=== PATIENT | female | born 1990 | race Caucasian/White ===

== ENCOUNTER 2018-09-21 12:41 | Outpatient (CLI) | payer OTHER ==
[2018-09-21 15:05] LABS: ADD MAN DIFF? NO
[2018-09-21 15:09] LABS: BASOPHILS % 0.2 % (0.0-2.0); EOSINOPHILS % 0.4 % (0.0-7.0); HEMATOCRIT 33.9 % (37.0-47.0); HEMOGLOBIN 11.4 g/dl (12.0-16.0); LYMPHOCYTES # 1.4 10^3/ul (0.8-2.9); LYMPHOCYTES % 14.4 % (15.0-51.0); MEAN CORPUSCULAR HEMOGLOBIN 29.5 pg (29.0-33.0); MEAN CORPUSCULAR HGB CONC 33.6 g/dl (32.0-37.0); MEAN CORPUSCULAR VOLUME 87.8 fl (82.0-101.0); MEAN PLATELET VOLUME 10.8 fl (7.4-10.4); MONOCYTE # 0.8 10^3/ul (0.3-0.9); MONOCYTES % 7.9 % (0.0-11.0); NEUTROPHIL # 7.4 10^3/ul (1.6-7.5); NEUTROPHILS % 76.5 % (39.0-77.0); PLATELET COUNT 284 10^3/UL (140-415); RED BLOOD COUNT 3.86 10^6/ul (4.20-5.40); RED CELL DISTRIBUTION WIDTH 15.8 % (11.5-14.5)
[2018-09-21 15:09] LABS: WHITE BLOOD COUNT 9.7 10^3/ul (4.8-10.8)
[2018-09-21 15:37] LABS: ALANINE AMINOTRANSFERASE 15 IU/L (13-69); ALBUMIN 3.3 g/dl (3.3-4.9); ALKALINE PHOSPHATASE 151 IU/L (42-121); AMYLASE 98 U/L (11-123); ANION GAP 8 (5-13); ASPARTATE AMINO TRANSFERASE 18 IU/L (15-46); BILIRUBIN,INDIRECT 0.3 mg/dl (0-1.1); BILIRUBIN,TOTAL 0.3 mg/dl (0.2-1.3); BLOOD UREA NITROGEN 8 mg/dl (7-20); CALCIUM 8.6 mg/dl (8.4-10.2); CARBON DIOXIDE 20 mmol/L (21-31); CHLORIDE 110 mmol/L (97-110); CREATININE 0.44 mg/dl (0.44-1.00); Estimated GFR > 60 mL/min (>60); GLUCOSE 97 mg/dl (70-220); LIPASE 56 U/L (23-300); POTASSIUM 3.9 mmol/L (3.5-5.1); SODIUM 138 mmol/L (135-144); TOTAL PROTEIN 6.6 g/dl (6.1-8.1)
== END 2018-09-21 17:01 | disposition home or self-care (01) ==
LOC: OBT 12:41 → L-D 12:41 → OBT 17:01
DX: O26.893 Other specified pregnancy related conditions, third trimester (principal); R10.11 Right upper quadrant pain; Z3A.38 38 weeks gestation of pregnancy
CPT/HCPCS: 76705; 76818; 80053; 82150; 83690; 85025

== ENCOUNTER 2018-10-07 20:31 | Inpatient (IN) | payer OTHER ==
[2018-10-07] MEDS ORDERED: LACTATED RINGER'S 1,000 ML IV (21:21)
[2018-10-07] MEDS ORDERED: METHYLERGONOVINE 0.2 MG INJ IM (21:30)
[2018-10-07] MEDS ORDERED: MISOPROSTOL 200 MCG TAB PR (21:30)
[2018-10-07] MEDS ORDERED: LIDOCAINE 1% (MPF) 30 ML INJ INJ (21:30)
[2018-10-07] MEDS ORDERED: BUTORPHANOL 2 MG INJ IV (21:30)
[2018-10-07] MEDS ORDERED: OXYTOCIN 30 UNITS/LR 500 ML IV ×2 (21:30)
[2018-10-07] MEDS ORDERED: CARBOPROST 250 MCG INJ IM (21:30)
[2018-10-07] MEDS: LACTATED RINGER'S 1,000 ML IV (21:54)
[2018-10-07 21:56] LABS: RUPTURE FETAL MEMBRANES NEGATIVE (NEGATIVE)
[2018-10-07 22:07] LABS: ADD MAN DIFF? NO
[2018-10-07] MEDS: AMPICILLIN 2 GM/NS (PMX) 100 ML IV (22:08)
[2018-10-07 22:13] LABS: BASOPHILS % 0.3 % (0.0-2.0); EOSINOPHILS # 0.1 10^3/ul (0.0-0.5); EOSINOPHILS % 0.6 % (0.0-7.0); HEMATOCRIT 36.1 % (37.0-47.0); LYMPHOCYTES # 2.1 10^3/ul (0.8-2.9); LYMPHOCYTES % 19.1 % (15.0-51.0); MEAN CORPUSCULAR HEMOGLOBIN 29.6 pg (29.0-33.0); MEAN CORPUSCULAR HGB CONC 33.2 g/dl (32.0-37.0); MEAN CORPUSCULAR VOLUME 89.1 fl (82.0-101.0); MEAN PLATELET VOLUME 11.2 fl (7.4-10.4); MONOCYTES % 9.3 % (0.0-11.0); NEUTROPHIL # 7.6 10^3/ul (1.6-7.5); PLATELET COUNT 285 10^3/UL (140-415); RED BLOOD COUNT 4.05 10^6/ul (4.20-5.40); RED CELL DISTRIBUTION WIDTH 16.8 % (11.5-14.5)
[2018-10-07 22:13] LABS: WHITE BLOOD COUNT 10.8 10^3/ul (4.8-10.8)
[2018-10-07 22:32] LABS: INR 0.85; PROTIME 11.7 Sec (11.9-14.9); PT RATIO 0.9
[2018-10-07 22:33] LABS: PARTIAL THROMBOPLASTIN TIME 31.4 Sec (23.0-35.0)
[2018-10-07 23:02] LABS: HEPATITIS B SURFACE ANTIGEN NEGATIVE (NEGATIVE)
[2018-10-08] MEDS: OXYTOCIN 30 UNITS/LR 500 ML IV (00:55)
[2018-10-08] MEDS: AMPICILLIN 1 GM/NS (PMX) 50 ML IV ×6 (02:04→22:03)
[2018-10-08] MEDS: DEXTROSE 5%-LR 1,000 ML IV ×2 (05:21→21:21)
[2018-10-08] MEDS: LACTATED RINGER'S 1,000 ML IV ×3 (07:36→20:11)
[2018-10-08] MEDS ORDERED: FENTAnyl 2MCG/ML-ROPIV 0.2% 100 ML (11:04)
[2018-10-08] MEDS ORDERED: NALOXONE (0.4 MG/ML) INJ IV (18:30)
[2018-10-08] MEDS: FENTAnyl 2MCG/ML-ROPIV 0.2% 100 ML BAG EPI ×2 (18:48→23:49)
[2018-10-08] MEDS: ONDANSETRON 4 MG INJ IV (19:35)
[2018-10-08 20:01] LABS: RAPID PLASMA REAGIN NONREACTIVE (NR)
[2018-10-08] MEDS ORDERED: LIDOCAINE 1.5%/EPI MPF (SDV) 30 ML VIAL (20:04)
[2018-10-09] MEDS: AMPICILLIN 1 GM/NS (PMX) 50 ML IV ×2 (01:49→05:50)
[2018-10-09] MEDS: LACTATED RINGER'S 1,000 ML IV ×2 (04:53→08:54)
[2018-10-09] MEDS: FENTAnyl 2MCG/ML-ROPIV 0.2% 100 ML BAG EPI (05:11)
[2018-10-09] MEDS: DEXTROSE 5%-LR 1,000 ML IV ×3 (05:21→21:21)
[2018-10-09] MEDS ORDERED: FENTAnyl 50 MCG/ML VIAL (07:51)
[2018-10-09] MEDS ORDERED: OXYTOCIN 30 UNITS/LR 500 ML IV ×2 (08:00)
[2018-10-09] MEDS ORDERED: MISOPROSTOL 200 MCG TAB PR ×3 (08:00→09:00)
[2018-10-09] MEDS ORDERED: CARBOPROST 250 MCG INJ IM ×2 (08:00)
[2018-10-09] MEDS ORDERED: METHYLERGONOVINE 0.2 MG INJ IM ×2 (08:00)
[2018-10-09] MEDS ORDERED: CEFAZOLIN 2 GM/50 ML (PMX) 50 ML IVPB (08:00)
[2018-10-09] MEDS ORDERED: NA BICARB 50 MEQ/50 ML VIAL (08:01)
[2018-10-09] MEDS ORDERED: LIDOCAINE 1.5%/EPI MPF (SDV) 30 ML VIAL (08:01)
[2018-10-09] MEDS ORDERED: DEXAMETHASONE 4 MG/ML 1 ML INJ (08:02)
[2018-10-09] MEDS ORDERED: ONDANSETRON 4 MG INJ (08:04)
[2018-10-09] MEDS: AZITHROMYCIN 500MG/NS (PMX) 250 ML IVPB (08:14)
[2018-10-09] MEDS ORDERED: morphine SULFATE/PF (10 MG/10 ML) INJ (08:21)
[2018-10-09 08:49] LABS: AADO2 Cord Arterial 73.5 mmHg; CBA Base Excess -2.9 mmol/L; CBA COHb 1.1 %; CBA Oxygen Sat 31.6 mmHG; CBA Total Hemglobin 15.5 g/dl; Cord Blood Arterial pO2 16.4 mmHG (15.0-45.0); Fraction OxyHgb Cord Arterial 30.7 %; MODE ROOM AIR; MetHgb Cord Arterial 1.7 %; Sample Type CBA; Site CORD
[2018-10-09 08:51] LABS: CBV Base Excess -3.9 mmol/L; CBV COHb 1.7 %; CBV Oxygen Sat 61.2 mmHG; CBV Total Hemglobin 16.2 g/dl; Cord Blood Venous pO2 27.1 mmHG (15.0-45.0); Fraction OxyHgb Cord Venous 59.7 %; MODE ROOM AIR; MetHgb Cord Venous 0.8 %; Sample Type BLMV; Site CORD
[2018-10-09] MEDS ORDERED: LANOLIN HPA 1 PKT TOP (09:00)
[2018-10-09] MEDS ORDERED: NA PHOSPHATE/BIPHOS 133 ML ENEMA PR (09:00)
[2018-10-09] MEDS ORDERED: DIPHENHYDRAMINE 50 MG INJ IV (09:00)
[2018-10-09] MEDS ORDERED: HYDROmorphONE 0.5 MG/0.5 ML SYG IV (09:00)
[2018-10-09] MEDS: SENNA/DOCUSATE NA (8.6MG/50MG) TAB PO ×2 (09:00→21:07)
[2018-10-09] MEDS ORDERED: OXYCODONE/ACETAMINOPHEN (5/325) TAB PO (09:00)
[2018-10-09] MEDS ORDERED: ZOLPIDEM 5 MG TAB PO (09:00)
[2018-10-09] MEDS ORDERED: ONDANSETRON 4 MG INJ IV (09:00)
[2018-10-09] MEDS ORDERED: NALOXONE (0.4 MG/ML) INJ IV (09:00)
[2018-10-09] MEDS ORDERED: KETOROLAC 30 MG INJ (09:19)
[2018-10-09] MEDS: KETOROLAC 30 MG INJ IV (09:23)
[2018-10-09] MEDS: HYDROmorphONE 0.5 MG/0.5 ML SYG IV ×2 (09:23→12:52)
[2018-10-09] MEDS: OXYTOCIN 30 UNITS/LR 500 ML IV ×2 (09:34→13:17)
[2018-10-09] MEDS ORDERED: PIPER-TAZO 3.375 GM IV (PMX) 100 ML IVPB (10:00)
[2018-10-09] MEDS: CEFAZOLIN 2 GM/50 ML (PMX) 50 ML IVPB (10:27)
[2018-10-09] MEDS: IBUPROFEN 600 MG TAB PO ×2 (12:00→18:00)
[2018-10-09] MEDS: PIPER-TAZO 3.375 GM IV (PMX) 100 ML IVPB ×2 (15:33→23:31)
[2018-10-10] MEDS: DEXTROSE 5%-LR 1,000 ML IV ×2 (05:21→13:21)
[2018-10-10] MEDS: IBUPROFEN 600 MG TAB PO ×4 (06:00→17:57)
[2018-10-10 07:18] LABS: ADD MAN DIFF? NO
[2018-10-10 07:24] LABS: ABNORMAL IP MESSAGE 1; BASOPHIL # 0.1 10^3/ul (0.0-0.1); BASOPHILS % 0.3 % (0.0-2.0); EOSINOPHILS % 0.1 % (0.0-7.0); HEMATOCRIT 26.7 % (37.0-47.0); HEMOGLOBIN 9.1 g/dl (12.0-16.0); LYMPHOCYTES % 9.4 % (15.0-51.0); MEAN CORPUSCULAR HGB CONC 34.1 g/dl (32.0-37.0); MEAN CORPUSCULAR VOLUME 88.1 fl (82.0-101.0); MEAN PLATELET VOLUME 11.3 fl (7.4-10.4); MONOCYTE # 1.5 10^3/ul (0.3-0.9); MONOCYTES % 7.1 % (0.0-11.0); NEUTROPHIL # 17.5 10^3/ul (1.6-7.5); NEUTROPHILS % 82.3 % (39.0-77.0); PLATELET COUNT 201 10^3/UL (140-415); RED BLOOD COUNT 3.03 10^6/ul (4.20-5.40); RED CELL DISTRIBUTION WIDTH 16.6 % (11.5-14.5)
[2018-10-10 07:24] LABS: WHITE BLOOD COUNT 21.3 10^3/ul (4.8-10.8)
[2018-10-10 07:32] LABS: POSITIVE DIFF @See below
[2018-10-10] MEDS: PIPER-TAZO 3.375 GM IV (PMX) 100 ML IVPB (07:34)
[2018-10-10] MEDS: OXYCODONE/ACETAMINOPHEN (5/325) TAB PO ×2 (09:06→16:05)
[2018-10-10] MEDS: SENNA/DOCUSATE NA (8.6MG/50MG) TAB PO ×2 (10:17→22:26)
[2018-10-11] MEDS: IBUPROFEN 600 MG TAB PO ×6 (01:47→23:32)
[2018-10-11 08:09] LABS: ADD MAN DIFF? NO
[2018-10-11 08:17] LABS: BASOPHILS % 0.2 % (0.0-2.0); EOSINOPHILS # 0.1 10^3/ul (0.0-0.5); EOSINOPHILS % 0.3 % (0.0-7.0); HEMATOCRIT 28.3 % (37.0-47.0); HEMOGLOBIN 9.2 g/dl (12.0-16.0); LYMPHOCYTES % 12.3 % (15.0-51.0); MEAN CORPUSCULAR HEMOGLOBIN 29.3 pg (29.0-33.0); MEAN CORPUSCULAR HGB CONC 32.5 g/dl (32.0-37.0); MEAN CORPUSCULAR VOLUME 90.1 fl (82.0-101.0); MEAN PLATELET VOLUME 11.1 fl (7.4-10.4); MONOCYTE # 1.1 10^3/ul (0.3-0.9); MONOCYTES % 6.8 % (0.0-11.0); NEUTROPHIL # 12.7 10^3/ul (1.6-7.5); NEUTROPHILS % 79.6 % (39.0-77.0); PLATELET COUNT 223 10^3/UL (140-415); RED BLOOD COUNT 3.14 10^6/ul (4.20-5.40); RED CELL DISTRIBUTION WIDTH 17.2 % (11.5-14.5)
[2018-10-11] MEDS: SENNA/DOCUSATE NA (8.6MG/50MG) TAB PO ×2 (09:27→22:06)
[2018-10-12] MEDS: IBUPROFEN 600 MG TAB PO ×2 (05:43→11:09)
[2018-10-12 06:43] LABS: ADD MAN DIFF? NO
[2018-10-12 06:50] LABS: BASOPHILS % 0.3 % (0.0-2.0); EOSINOPHILS # 0.2 10^3/ul (0.0-0.5); EOSINOPHILS % 1.6 % (0.0-7.0); HEMATOCRIT 27.3 % (37.0-47.0); HEMOGLOBIN 8.7 g/dl (12.0-16.0); LYMPHOCYTES # 2.2 10^3/ul (0.8-2.9); LYMPHOCYTES % 20.5 % (15.0-51.0); MEAN CORPUSCULAR HEMOGLOBIN 29.1 pg (29.0-33.0); MEAN CORPUSCULAR HGB CONC 31.9 g/dl (32.0-37.0); MEAN CORPUSCULAR VOLUME 91.3 fl (82.0-101.0); MEAN PLATELET VOLUME 10.8 fl (7.4-10.4); MONOCYTE # 0.7 10^3/ul (0.3-0.9); MONOCYTES % 6.7 % (0.0-11.0); NEUTROPHIL # 7.3 10^3/ul (1.6-7.5); NEUTROPHILS % 69.5 % (39.0-77.0); NUCLEATED RED BLOOD CELLS% 0.3 /100WBC (0.0-0.0); PLATELET COUNT 231 10^3/UL (140-415); RED BLOOD COUNT 2.99 10^6/ul (4.20-5.40); RED CELL DISTRIBUTION WIDTH 17.2 % (11.5-14.5)
[2018-10-12 06:50] LABS: WHITE BLOOD COUNT 10.6 10^3/ul (4.8-10.8)
[2018-10-12] MEDS: SENNA/DOCUSATE NA (8.6MG/50MG) TAB PO (08:29)
[2018-10-12] MEDS: DIPHTH/TET/ACEL PERTUSS (ADULT) 0.5 ML VIAL IM* (09:00)
[2018-10-12] MEDS: MEASLES,MUMPS,RUBELLA VACCINE INJ SC* (11:10)
== END 2018-10-12 18:49 | disposition home or self-care (01) | DRG 788 ==
LOC: OBT 20:31 → L-D 10-09 07:46 → OBT 21:10 → L-D 21:10 → PP1 10-09 11:40
PROVIDERS: Specialist
PROC: 10D00Z1 Extraction of Products of Conception, Low, Open Approach (ICD-10-PCS; principal; 2018-10-09 08:00)
DX: O48.0 Post-term pregnancy (principal); O24.429 Gestational diabetes mellitus in childbirth, unspecified control; O76 Abnormality in fetal heart rate and rhythm complicating labor and delivery; Z37.0 Single live birth; Z3A.40 40 weeks gestation of pregnancy
CPT/HCPCS: 36415; 36600; 62322; 76815; 82803; 84112; 85025; 85610; 85730; 86592; 86850; 86900; 86901; 87340; 99464

== ENCOUNTER 2018-10-13 00:52 | Emergency (ER) | payer OTHER ==
[2018-10-13 01:34] LABS: URINE PH (Dip) POC 7.5 (5.0-8.5)
[2018-10-13 01:34] LABS: URINE BLOOD (Dip) POC 3+ (NEGATIVE); URINE GLUCOSE (Dip) POC Negative (NEGATIVE); URINE KETONES (Dip) POC Negative (NEGATIVE); URINE LEUKOCYTE EST (Dip) POC 2+ (NEGATIVE); URINE NITRITE (Dip) POC Negative (NEGATIVE); URINE TOTAL PROTEIN POC Negative (NEGATIVE)
[2018-10-13] MEDS: SOD CHLORIDE 0.9% 1,000 ML IV (01:42)
[2018-10-13] MEDS: ONDANSETRON 4 MG INJ IV (01:44)
[2018-10-13 01:51] LABS: URINE PH (Dip) POC 7.5 (5.0-8.5)
[2018-10-13 01:51] LABS: URINE BLOOD (Dip) POC 3+ (NEGATIVE); URINE GLUCOSE (Dip) POC Negative (NEGATIVE); URINE KETONES (Dip) POC Negative (NEGATIVE); URINE LEUKOCYTE EST (Dip) POC 2+ (NEGATIVE); URINE NITRITE (Dip) POC Negative (NEGATIVE); URINE TOTAL PROTEIN POC Negative (NEGATIVE)
[2018-10-13 01:59] LABS: ADD MAN DIFF? NO
[2018-10-13 02:03] LABS: BASOPHIL # 0.1 10^3/ul (0.0-0.1); BASOPHILS % 0.4 % (0.0-2.0); EOSINOPHILS # 0.1 10^3/ul (0.0-0.5); HEMATOCRIT 32.5 % (37.0-47.0); HEMOGLOBIN 10.8 g/dl (12.0-16.0); LYMPHOCYTES # 1.9 10^3/ul (0.8-2.9); LYMPHOCYTES % 16.4 % (15.0-51.0); MEAN CORPUSCULAR HEMOGLOBIN 29.7 pg (29.0-33.0); MEAN CORPUSCULAR HGB CONC 33.2 g/dl (32.0-37.0); MEAN CORPUSCULAR VOLUME 89.3 fl (82.0-101.0); MEAN PLATELET VOLUME 10.3 fl (7.4-10.4); MONOCYTE # 0.7 10^3/ul (0.3-0.9); MONOCYTES % 6.4 % (0.0-11.0); NEUTROPHIL # 8.4 10^3/ul (1.6-7.5); NUCLEATED RED BLOOD CELLS% 0.3 /100WBC (0.0-0.0); PLATELET COUNT 318 10^3/UL (140-415); RED BLOOD COUNT 3.64 10^6/ul (4.20-5.40)
[2018-10-13 02:03] LABS: WHITE BLOOD COUNT 11.3 10^3/ul (4.8-10.8)
[2018-10-13] MEDS: KETOROLAC 30 MG INJ IV (02:03)
[2018-10-13 02:08] LABS: ADD UMIC YES; UR ASCORBIC ACID NEGATIVE (NEGATIVE); UR BACTERIA FEW /HPF (NONE SEEN); UR BILIRUBIN (Dip) NEGATIVE (NEGATIVE); UR BLOOD (Dip) 3+ mg/dL (NEGATIVE); UR CLARITY CLEAR (CLEAR); UR COLOR STRAW (YELLOW); UR GLUCOSE (Dip) NEGATIVE (NEGATIVE); UR KETONES (Dip) NEGATIVE (NEGATIVE); UR LEUKOCYTE ESTERASE (Dip) 3+ Leu/ul (NEGATIVE); UR NITRITE (Dip) NEGATIVE (NEGATIVE); UR NONSQUAMOUS EPITHELIAL CELL 3 /HPF (NONE SEEN); UR RBC 43 /HPF (0-5); UR SPECIFIC GRAVITY (Dip) 1.006 (1.003-1.030); UR SQUAMOUS EPITHELIAL CELL FEW /HPF (FEW); UR TOTAL PROTEIN (Dip) NEGATIVE (NEGATIVE); UR UROBILINOGEN (Dip) NEGATIVE (NEGATIVE); UR WBC 45 /HPF (0-5)
[2018-10-13 02:21] LABS: ALANINE AMINOTRANSFERASE 43 IU/L (13-69); ALBUMIN 3.2 g/dl (3.3-4.9); ALKALINE PHOSPHATASE 110 IU/L (42-121); ANION GAP 8 (5-13); ASPARTATE AMINO TRANSFERASE 47 IU/L (15-46); BILIRUBIN,INDIRECT 0.3 mg/dl (0-1.1); BILIRUBIN,TOTAL 0.3 mg/dl (0.2-1.3); BLOOD UREA NITROGEN 7 mg/dl (7-20); CALCIUM 8.9 mg/dl (8.4-10.2); CARBON DIOXIDE 23 mmol/L (21-31); CHLORIDE 112 mmol/L (97-110); Estimated GFR > 60 mL/min (>60); GLUCOSE 101 mg/dl (70-220); POTASSIUM 3.5 mmol/L (3.5-5.1); SODIUM 143 mmol/L (135-144); TOTAL PROTEIN 6.4 g/dl (6.1-8.1)
[2018-10-13] MEDS: CEFTRIAXONE 1 GM/50 ML (PMX) 50 ML IVPB (02:26)
[2018-10-13] MEDS: ACETAMINOPHEN 500 MG TAB PO (03:28)
[2018-10-13] MEDS: morphine 2 MG INJ IV (03:28)
== END 2018-10-13 04:06 | disposition home or self-care (01) ==
LOC: FTE 00:52
DX: O86.20 Urinary tract infection following delivery, unspecified (principal); B96.89 Other specified bacterial agents as the cause of diseases classified elsewhere; R51 Headache
CPT/HCPCS: 80053; 81001; 81003; 81025; 85025; 96374; 96375; 99284-25